=== PATIENT | male | born 1960 | race Caucasian/White ===

== ENCOUNTER → 2018-09-12 | Outpatient (REF) | payer MEDICARE, MEDICAID ==
[2018-09-12 12:57] LABS: ALBUMIN 4.2 g/dL (3.2-5.0); ALKALINE PHOSPHATASE 85 u/l (38-126); ANION GAP 16 (6-22 (CALC)); BILIRUBIN, TOTAL 0.8 mg/dL (0.0-1.4); BUN 12 mg/dL (9-20); BUN/CREATININE RATIO 15 (12-20 (CALC)); CARBON DIOXIDE 25 mmol/l (22-30); CHLORIDE 95 mmol/l (95-108); CREATININE 0.8 mg/dL (0.7-1.3); GFR > 60 ML/MIN (>=60 (CALC)); GFR FOR AFR.AMER. > 60 ML/MIN (>=60 (CALC)); POTASSIUM 4.3 mmol/l (3.5-5.1); SGOT/AST 57 u/l (17-59); SODIUM 132 mmol/l (137-146); TOTAL PROTEIN 7.6 g/dL (6.3-8.2)
== END | disposition home or self-care (01) ==
LOC: LAB 10:49
PROVIDERS: ATTEND Nurse Practitioner
DX: R79.89 Other specified abnormal findings of blood chemistry (principal)

== ENCOUNTER → 2018-09-26 | Outpatient (REF) | payer MEDICARE, MEDICAID | END | disposition home or self-care (01) | LOC: ULTRASND 07:49 | PROVIDERS: ATTEND Internal Medicine | DX: R94.5 Abnormal results of liver function studies (principal); K76.0 Fatty (change of) liver, not elsewhere classified ==

== ENCOUNTER 2021-12-15 14:25 | Emergency (ER) | payer MEDICARE, MEDICAID ==
[~2021-12-15] VITALS: Ht 170.2 cm; Wt 95.0 kg
[2021-12-15 14:42] VITALS: BP 145/70
[2021-12-15 14:46] VITALS: BP 145/70
[2021-12-15] MEDS ORDERED: OMNI-PAC300 MG PO (14:46)
[2021-12-15] MEDS ORDERED: BACTRIM DS1 TAB PO (14:46)
[2021-12-15] MEDS ORDERED: LISINOPRIL10 MG PO (14:58)
[2021-12-15] MEDS ORDERED: ANORO ELLIPTA 61 AER IN (14:58)
== END 2021-12-15 15:01 | disposition home or self-care (01) ==
LOC: ED 14:25
DX: L03.115 Cellulitis of right lower limb (principal); I10 Essential (primary) hypertension

== ENCOUNTER 2024-09-16 09:45 | Day surgery (SDC) | payer MEDICARE, MEDICAID ==
[~2024-09-16] VITALS: Ht 170.2 cm; Wt 90.7 kg
[~2024-09-16 09:45] MED LIST: ANORO ELLIPTA 61 AER IN; BACTRIM DS1 TAB PO; FLUOROMETHOLONE 0.1% OP; LISINOPRIL10 MG PO; LOSARTAN POTAS100 MG PO; OMNI-PAC300 MG PO; SILDENAFIL100 MG PO; TRELEGY ELLIPTA1 AER; XALATAN0.005 % OP
[2024-09-16] MEDS ORDERED: SODIUM CHLORIDE 0.9% 1,000 ML IV ONE (09:51)
[2024-09-16] MEDS ORDERED: FAMOTIDINE 10MG/ML 2ML SDV IV ONE (09:51)
[2024-09-16 11:57] VITALS: BP 153/80
[2024-09-16] MEDS ORDERED: LIDOCAINE HCL 2% 2ML SDV IV ONE (13:41)
[2024-09-16] MEDS ORDERED: PROPOFOL 200 MG/20 ML VIAL IV ONE (13:41)
[2024-09-16] MEDS ORDERED: GLYCOPYRROLATE 0.2 MG/ML IV ONE (13:41)
== END 2024-09-16 12:02 | disposition home or self-care (01) ==
LOC: ORM 09:45
PROVIDERS: ATTEND Surgery
PROC: 0DBC8ZX Excision of Ileocecal Valve, Via Natural or Artificial Opening Endoscopic, Diagnostic (ICD-10-PCS; principal; 2024-09-16)
DX: Z12.11 Encounter for screening for malignant neoplasm of colon (principal); D12.0 Benign neoplasm of cecum; K64.8 Other hemorrhoids; I10 Essential (primary) hypertension; J44.9 Chronic obstructive pulmonary disease, unspecified
CPT/HCPCS: J1596